=== PATIENT | male | born 1970 | race Two or more races ===

== ENCOUNTER 2021-06-07 05:01 | Emergency (ER) | payer MEDICARE, SELFPAY ==
[2021-06-07 05:52] VITALS: BP 156/82; PULSE 84; RESP 16; TEMP 36.7; O2SAT 99; BMI 28.3
[2021-06-07 07:46] LABS: Appearance Urine CLEAR; Color Urine YELLOW; Glucose Urine UA NEG (NEG); Leukocyte Esterase Urine NEG (NEG); Nitrite Urine NEG (NEG); Specific Gravity - Urine >= 1.030 (1.005-1.025); Urine Blood NEG (NEG); Urine Ketones >=80 MG/DL (NEG); Urine Protein TRACE MG/DL (NEG-TRACE)
[2021-06-07 07:48] LABS: Amphetamine Screen Urine Not Detected (Not Detect); Barbiturates, Urine Not Detected (Not Detect); Benzodiazepines Screen Urine POSITIVE (Not Detect); Cannabinoid Screen Urine POSITIVE (Not Detect); Cocaine Screen Urine Not Detected (Not Detect); Fentanyl, urine POSITIVE (Not Detect); Opiate Screen Urine POSITIVE (Not Detect); Phencyclidine Screen Urine Not Detected (Not Detect)
--- NOTE | 2021-06-07 08:34 | ED_ITS ---
HPI - General Adult General Chief complaint: General Medical Stated complaint: detox Time Seen by Provider: 06/07/21 08:22 Source: patient Mode of arrival: ambulatory Limitations: no limitations History of Present Illness HPI narrative: 50-year-old male who presents emergency department for evaluation of medical clearance for polysubstance use disorder and detox. The patient states that he has been accepted at a detox facility but he needs a medical evaluation before he can get into the facility. The patient states that he has a chronic pain syndrome secondary to back pain. He states that he is prescribed Percocet 10 mg tablets, 3 times a day and clonazepam 2 mg 3 times a day. He states that his girlfriend threw away all of his pills 3 days prior and he has been withdrawing from his medications. He states that yesterday he snorted heroin to help with this withdrawals. He states that he feels like he starting to withdraw. He states that he has persistent nausea, myalgias and diarrhea. He states that he is also having diffuse body pain. He denied fever, chills, chest pain, shortness of breath, abdominal pain, cough. The patient has not been vaccinated for COVID-19. The patient states that he is girlfriend brought him to the [facility] in [place] and the clinic called an ambulance to have the patient transported here for medical clearance. Related Data Allergies Allergy/AdvReac Type Severity Reaction Status Date / Time No Known Allergies Allergy Verified 06/07/21 05:49 Review of Systems Review of Systems: Yes all other systems are reviewed and are negative FOR[facility]LY [facility], [facility] Past Medical History FOR[facility], [facility] Narrative: Past medical history: Chronic pain syndrome secondary to back pain. Past surgical history: None. Social history: The patient smokes 1 pack of cigarettes per day times 20 years. He only occasionally drinks alcohol. He does admit to using heroin 1 day prior, he states that he used it intranasally to help him with his withdrawal symptoms. Social History Social History Advance Directives: No Advance Directives Information Provided: No Physical Exam Vital Signs: Vital Signs: Last Vital Signs Temp 99.6 F 06/07/21 09:15 Pulse 59 06/07/21 09:15 Resp 16 06/07/21 09:15 BP 152/81 H 06/07/21 09:15 Pulse Ox 97 06/07/21 09:15 BMI result Body Mass Index 28.3 Const: General: cooperative and no acute distress Orientation/consciousness: oriented to person and oriented to place Limitations: no limitations HENMT: Head: Yes normal to inspection, Yes normocephalic and Yes atraumatic Ears: external ears normal General nose exam: Normal external nose present Face and sinus: Yes normal facial exam Mouth: Normal oral and palatal mucosa present Throat: Yes posterior oropharynx normal Eyes: General: appearance normal, both eyes and all related structures Pupils: Equal, round and reactive pupils present Neck: Neck: Yes normal visual inspection, Yes no lymphadenopathy, Yes trachea midline and Yes supple Chest: Chest palpation & inspection: normal inspection of the chest and normal palpation of entire chest wall Resp: Effort & Inspection: normal respiratory effort and able to speak in complete sentences Auscultation: clear to auscultation bilaterally Cardio: Rate: regular rate Rhythm: regular rhythm Heart sounds: S1 normal heart sound present, S2 normal heart sound present and no murmurs GI: Inspection: Yes normal to inspection Palpation (GI): Soft to palpation, nontender and no guarding Auscultation: normal bowel sounds : General: Yes no CVA tenderness Back/Spine/Pelvis: Back: no CVA tenderness Skin: General skin exam: no rashes or lesions noted Neuro: General: oriented to person and oriented to place Cranial nerves: Yes CN's II-XII intact bilaterally and Yes Equal, round and reactive pupils present Cognition (Neuro): normal cognition Motor exam (neuro): 5/5 motor strength present throughout Extrem: General: Yes normal to inspection Psych: Appearance: grossly normal Speech and movement: Normal speech and movement present Affect: normal affect Attitude: cooperative Thought process: Normal thought process present Thought content: Normal thought content present Course Course Course Narrative: 50-year-old male who presents emergency department for medical clearance to get into a detox for opiate and benzodiazepine use. He states these medications were prescribed by his doctor but his girlfriend through these medications away 3 days prior and now he is in withdrawal. He states that he did use intranasal heroin yesterday to help with his withdrawals. He states that his symptoms include body pain, persistent nausea and diarrhea. Patient's vital signs revealed a elevated blood pressure of 156/82 otherwise were unremarkable. This is probably related to his withdrawal syndrome. Physical examination was unremarkable. I did order a CBC, BMP, liver panel, urine drug screen, urinalysis, COVID-19 test. Patient was given Tylenol 975 mg orally for his myalgia, he was given Ativan 2 mg orally for his benzodiazepine withdrawal and Zofran 4 mg orally for his nausea. 0946: Laboratory evaluation: White blood cell count was elevated 14,900, this is most likely a stress reaction secondary withdrawal and not related to an infection. Comprehensive metabolic panel revealed an elevated glucose of 164. Liver function tests were normal. Alcohol level was below detectable limits. Urine tox screen was positive for opiates, fentanyl, benzodiazepines and marijuana. This is consistent with the patient's use of oxycodone and recently using intranasal ?heroin . Urinalysis was unremarkable. COVID-19 test was negative. The patient is feeling better after the above treatment. The patient is medically cleared for detox. The patient states he does not have a way to get back to the detox program therefore will consult the Care Team to see if they can arrange transport for him. Medical Decision Making Lab Data Result diagrams: 06/07/21 08:46 06/07/21 08:46 Labs: Lab Results 06/07/21 06/07/21 06/07/21 Range/Units 07:29 07:29 08:46 WBC (4.8-10.8) X10*3/uL RBC (4.60-5.80) X10*6/uL Hgb (14.0-18.0) g/dl Hct (42.0-52.0) % MCV (80.0-98.0) fL MCH (27.0-33.0) pg MCHC (31.0-36.0) g/dl RDW (11.0-16.0) % Plt Count (160-400) X10*3/uL MPV (9.4-12.4) fL Immature Gran % (Auto) (0.0-0.4) % Neut % (Auto) (45-73) % Lymph % (Auto) (20-40) % [place] % (Auto) (2-11) % Eos % (Auto) (0-4) % Baso % (Auto) (0-2) % Lymph # (Auto) (1.2-4.9) X10*3/uL [place] # (Auto) (0.1-1.2) X10*3/uL Eos # (Auto) (0.0-0.4) X10*3/uL Baso # (Auto) (0.0-0.2) X10*3/uL Abs Immat Gran (auto) (0.00-0.03) X10*3/uL Absolute Neuts (auto) (2.0-8.3) x10*3/uL Absolute Nucleated RBC (0.0-0.012) X10*3/uL Nucleated RBC % (auto) (0.0-0.2) /100WBC Sodium (135-145) mmol/L Potassium (3.3-5.1) mmol/L Chloride (96-108) mmol/L Carbon Dioxide (22-29) mmol/L Anion Gap (12-20) BUN (9-16) mg/dL Creatinine (0.5-1.4) mg/dL Estim Creat Clear Calc Estimated GFR Random Glucose (60-115) mg/dL Calcium (8.4-10.2) mg/dL Total Bilirubin (0.0-1.0) mg/dL Direct Bilirubin (0.0-0.5) mg/dL AST (5-37) U/L ALT (0-40) U/L Alkaline Phosphatase (39-117) U/L Total Protein (6.5-8.0) g/dL Albumin (3.5-5.0) g/dL Urine Color YELLOW Urine Appearance CLEAR Urine pH 6.0 (5.0-8.0) Ur Specific [place] >= 1.030 H (1.005-1.025) Urine Protein TRACE (NEG-TRACE) MG/DL Urine Glucose (UA) NEG (NEG) MG/DL Urine Ketones >=80 (NEG) MG/DL Urine Blood NEG (NEG) Urine Nitrite NEG (NEG) Ur Leukocyte Esterase NEG (NEG) Urine Opiates Screen POSITIVE H (Not Detect) Urine Fentanyl Screen POSITIVE H (Not Detect) Ur Barbiturates Screen Not Detected (Not Detect) Ur Phencyclidine Scrn Not Detected (Not Detect) Ur Amphetamines Screen Not Detected (Not Detect) U Benzodiazepines Scrn POSITIVE H (Not Detect) Urine Cocaine Screen Not Detected (Not Detect) U Marijuana (THC) Screen POSITIVE H (Not Detect) Ethyl Alcohol < 10 mg/dL COVID-19 ([facility]) (Negative) COVID-19 Clin Com 12/25/21 12/25/21 12/25/21 Range/Units 08:46 08:46 08:46 WBC 14.9 H (4.8-10.8) X10*3/uL RBC 5.03 (4.60-5.80) X10*6/uL Hgb 14.6 (14.0-18.0) g/dl Hct 43.5 (42.0-52.0) % MCV 86.5 (80.0-98.0) fL MCH 29.0 (27.0-33.0) pg MCHC 33.6 (31.0-36.0) g/dl RDW 13.2 (11.0-16.0) % Plt Count 267 (160-400) X10*3/uL MPV 9.9 (9.4-12.4) fL Immature Gran % (Auto) 0.3 (0.0-0.4) % Neut % (Auto) 75.7 H (45-73) % Lymph % (Auto) 15.7 L (20-40) % [place] % (Auto) 7.9 (2-11) % Eos % (Auto) 0.1 (0-4) % Baso % (Auto) 0.3 (0-2) % Lymph # (Auto) 2.3 (1.2-4.9) X10*3/uL [place] # (Auto) 1.2 (0.1-1.2) X10*3/uL Eos # (Auto) 0.0 (0.0-0.4) X10*3/uL Baso # (Auto) 0.1 (0.0-0.2) X10*3/uL Abs Immat Gran (auto) 0.05 H (0.00-0.03) X10*3/uL Absolute Neuts (auto) 11.2 H (2.0-8.3) x10*3/uL Absolute Nucleated RBC 0.000 (0.0-0.012) X10*3/uL Nucleated RBC % (auto) 0.0 (0.0-0.2) /100WBC Sodium 140 (135-145) mmol/L Potassium 3.7 (3.3-5.1) mmol/L Chloride 107 (96-108) mmol/L Carbon Dioxide 24 (22-29) mmol/L Anion Gap 13 (12-20) BUN 17 H (9-16) mg/dL Creatinine 0.72 (0.5-1.4) mg/dL Estim Creat Clear Calc 131.3 Estimated GFR > 60 Random Glucose 164 H (60-115) mg/dL Calcium 9.8 (8.4-10.2) mg/dL Total Bilirubin 0.3 (0.0-1.0) mg/dL Direct Bilirubin 0.2 (0.0-0.5) mg/dL AST 18 (5-37) U/L ALT 24 (0-40) U/L Alkaline Phosphatase 76 (39-117) U/L Total Protein 7.6 (6.5-8.0) g/dL Albumin 4.4 (3.5-5.0) g/dL Urine Color Urine Appearance Urine pH (5.0-8.0) Ur Specific [place] (1.005-1.025) Urine Protein (NEG-TRACE) MG/DL Urine Glucose (UA) (NEG) MG/DL Urine Ketones (NEG) MG/DL Urine Blood (NEG) Urine Nitrite (NEG) Ur Leukocyte Esterase (NEG) Urine Opiates Screen (Not Detect) Urine Fentanyl Screen (Not Detect) Ur Barbiturates Screen (Not Detect) Ur Phencyclidine Scrn (Not Detect) Ur Amphetamines Screen (Not Detect) U Benzodiazepines Scrn (Not Detect) Urine Cocaine Screen (Not Detect) U Marijuana (THC) Screen (Not Detect) Ethyl Alcohol mg/dL COVID-19 ([facility]) Negative (Negative) COVID-19 Clin Com See Note Discharge Plan Discharge Clinical Impression: Polysubstance (including opioids) dependence, daily use, Heroin abuse, Benzodiazepine abuse Patient Disposition: Home, Self-Care Additional Instructions: You had a CBC, CMP and urinalysis which were unremarkable. Your urine tox screen was positive for opiates, fentanyl, benzodiazepines and marijuana. This is consistent with your chronic use of oxycodone , clonazepam and marijuana. The fentanyl is most likely secondary to your recent use of intranasal Heroin yesterday. Your alcohol level was below detectable limits. Your COVID-19 test was negative. Your medically cleared for a detox.
[2021-06-07] MEDS: Acetaminophen 325 MG TABLET 975 MG PO (08:41)
[2021-06-07] MEDS: LORazepam 1 MG TABLET 2 MG PO (08:41)
[2021-06-07] MEDS: Ondansetron ODT 4 MG TAB.RAPDIS TRANSLINGU (08:41)
[2021-06-07 08:51] LABS: MANUAL DIFF FLAG NO
[2021-06-07 09:06] LABS: Basophils Absolute Auto 0.1 X10*3/uL (0.0-0.2); Basophils Percent Auto 0.3 % (0-2); Eosinophils Percent Auto 0.1 % (0-4); Hematocrit 43.5 % (42.0-52.0); Hemoglobin 14.6 g/dl (14.0-18.0); Imm Gran Abs Auto 0.05 X10*3/uL (0.00-0.03); Imm Gran Pct Auto 0.3 % (0.0-0.4); Lymphocytes Absolute Auto 2.3 X10*3/uL (1.2-4.9); Lymphocytes Percent Auto 15.7 % (20-40); Mean Corpuscular HGB Conc 33.6 g/dl (31.0-36.0); Mean Corpuscular Volume 86.5 fL (80.0-98.0); Mean Platelet Volume 9.9 fL (9.4-12.4); Monocytes Absolute Auto 1.2 X10*3/uL (0.1-1.2); Monocytes Percent Auto 7.9 % (2-11); Neutrophils Absolute Auto 11.2 x10*3/uL (2.0-8.3); Neutrophils Percent Auto 75.7 % (45-73); Platelet Count 267 X10*3/uL (160-400); Red Blood Count 5.03 X10*6/uL (4.60-5.80); Red Cell Distribution Width 13.2 % (11.0-16.0); White Blood Count 14.9 X10*3/uL (4.8-10.8)
[2021-06-07 09:07] LABS: COVID-19 Test Negative (Negative); IDNOW Serial# 9DD0AD1C
[2021-06-07 09:10] LABS: Ethanol < 10 mg/dL
[2021-06-07 09:14] LABS: Alanine Aminotransferase 24 U/L (0-40); Albumin Level 4.4 g/dL (3.5-5.0); Alkaline Phosphatase 76 U/L (39-117); Anion Gap 13 (12-20); Aspartate Amino Transferase 18 U/L (5-37); Bilirubin Direct 0.2 mg/dL (0.0-0.5); Bilirubin Total 0.3 mg/dL (0.0-1.0); Blood Urea Nitrogen 17 mg/dL (9-16); Calcium 9.8 mg/dL (8.4-10.2); Carbon Dioxide 24 mmol/L (22-29); Chloride 107 mmol/L (96-108); Creatinine Clr Calc Pharmacy 131.3; Estimated Glomerular Filt Rate > 60; Glucose Random 164 mg/dL (60-115); Potassium 3.7 mmol/L (3.3-5.1); Sodium 140 mmol/L (135-145); Total Protein 7.6 g/dL (6.5-8.0)
[2021-06-07 09:15] VITALS: BP 152/81; PULSE 59; RESP 16; TEMP 37.6; O2SAT 97
--- NOTE | 2021-06-07 09:50 | PC.NURSE ---
call placed to care team to request assistance with transport of pt to [facility], awaiting resolution
== END 2021-06-07 11:31 | disposition home or self-care (01) ==
PROVIDERS: Emergency Provider Emergency Medicine Emergency Medical Services
DX: F11.20 Opioid dependence, uncomplicated (principal); F19.20 Other psychoactive substance dependence, uncomplicated; F13.10 Sedative, hypnotic or anxiolytic abuse, uncomplicated; Z20.822 Contact with and (suspected) exposure to COVID-19
CPT/HCPCS: 36415; 80048; 80076; 80307; 81003; 82077; 85025; 87635; 99284